=== PATIENT | male | born 1940 | race Caucasian/White ===

== ENCOUNTER 2023-05-29 10:13 | Emergency (ER) | payer MEDICARE, BC, SELFPAY ==
[2023-05-29 10:15] VITALS: BP 181/80
--- NOTE | 2023-05-29 10:38 | ED.GENMED ---
History of Present Illness
<JASON Larson - Last Filed: 05/29/23 13:25>
General
Chief Complaint: Cardiac Symptoms
Source: patient
Exam Limitations: none
Time Seen by Provider: 05/29/23 10:29
Nursing documentation reviewed up to this point in time: agreed with
Travel History
Have you had any contact with someone who has COVID-19?: No
Do you have any symptoms of coronavirus? Fever > 100 degrees, chills, cough, shortness of breath, sore throat, loss of taste or smell, muscle aches, or headache?: No
History of Present Illness
History of Present Illness:
82 yr old male past medical history of [place] former smoker hypertension hyperlipidemia reflux presents to the ER for evaluation. Patient reports normal the night around 4:15 am he had comfort to his chest and had very mild discomfort in his shoulder
blades. He is unsure exactly how long each episode lasted approx 'maybe 15 min.' He had no associated shortness of breath with it. No nausea vomiting. He does report he had a dinner republican at his house last night and probably ate and drank a
little too much alcohol. He does have a history however of TX with cardiac stent 14 years ago. He is followed by Dr. Phipps. He did notify the office and they recommended he come to the ER.
With his prior TX his symptoms leading up to his stent were shoulder blade pain with exertion. He does however report that he is very active and plays tennis several times a week and does not get any symptoms of chest pain or shoulder blade pain
with activity. Since having his TX he has had intermittent chronic pain in the scapula. He does report Dr. Phipps is aware of this
He is on aspirin no other blood thinners.
He is currently symptomatic
Past History
<JASON Larson - Last Filed: 05/29/23 13:25>
Past History
ED Past Medical History: CAD, HTN, Hypercholesterolemia, [place] and Other (Lumbar stenosis)
ED Past Surgical History: Cardiac, Orthopedic and Other
Social History
Tobacco: Non-smoker
Alcohol: Daily
Drug: None
Personal:
Living: with family
Employment: Employed
Family History
Family History: Hypertension and CAD
Review of Systems
<JASON Larson - Last Filed: 05/29/23 13:25>
Review of Systems
Allergies reviewed?: Yes
All Other Systems: ROS reviewed and negative except as documented in HPI and ROS
Constitutional: Reports no symptoms; Denies fever
Respiratory: Denies trouble breathing
Cardiac: Reports chest pain and other (resolved now ); Denies diaphoresis, palpitations or syncope
ABD/GI: Reports no symptoms; Denies abdominal pain, nausea or vomiting
Musculoskeletal: Reports no symptoms
Skin: Reports no symptoms
Psychiatric: Reports no symptoms
Phy Exam
<JASON Larson - Last Filed: 05/29/23 13:25>
General Physical Exam
General Presentation: no apparent distress
General age: appears stated age
General Skin: warm and dry
General Habitus: normal
General Mental: alert
General Hydration: appears well hydrated
Cardiovascular Exam
Cardiovascular Exam: regular rate/rhythm, no murmur and normal peripheral pulses
Pulmonary Exam
Pulmonary Exam: lungs clear and no respiratory distress
Neurological Exam
Neurological Exam: alert and oriented x3
Musculoskeletal Exam
Musculoskeletal Exam: full ROM
Skin Exam
Skin Exam: normal color and warm/dry
Psychiatric Exam
Psychiatric Exam: normal mood/affect
Course
<JASON Larson - Last Filed: 05/29/23 13:25>
Orders/Labs/Results
Orders:
Orders
05/29/23 10:17
EKG [Electrocardiogram (*1)] Urgent
Reason for Study: Chest Pain
EKG- Treatment ONCE
05/29/23 10:37
IV Insert/Care/Rem.- Treatment PRN
05/29/23 10:38
Cardiac Monitoring- Treatment ONCE
05/29/23 11:09
Complete Blood Count/With Diff Urgent
Comprehensive Metabolic Panel Urgent
Troponin I Urgent
Abnormal Lab Results
05/29/23
11:09
MCH 31.6 H pg
(27.0-31.0)
MPV 11.0 H fL
(7.4-10.4)
Absolute Monos (auto) 0.7 H 10^3/uL
(0.1-0.6)
Monocytes % 11.2 H %
(1.7-9.3)
BUN 21 H mg/dl
(9-20)
05/29/23 11:09
05/29/23 11:09
Vital Signs
Initial and Last Documented VS:
Initial Vital Signs
Temp Pulse Resp BP Pulse Ox
98.4 F 55 16 181/80 99
05/29/23 10:15 05/29/23 10:15 05/29/23 10:15 05/29/23 10:15 05/29/23 10:15
Last Documented Vital Signs
Temp Pulse Resp BP Pulse Ox
98.4 F 51 18 153/75 96
05/29/23 10:15 05/29/23 12:15 05/29/23 12:15 05/29/23 12:00 05/29/23 12:15
Corporate Safety Manager consulted with Physician
Corporate Safety Manager consulted with physician?: Yes
Name of Physician Consulted: Estee
<Srikanth Fontanez, DO - Last Filed: 05/29/23 13:18>
Orders/Labs/Results
Orders:
Orders
05/29/23 10:17
EKG [Electrocardiogram (*1)] Urgent
Reason for Study: Chest Pain
EKG- Treatment ONCE
05/29/23 10:37
IV Insert/Care/Rem.- Treatment PRN
05/29/23 10:38
Cardiac Monitoring- Treatment ONCE
05/29/23 11:09
Complete Blood Count/With Diff Urgent
Comprehensive Metabolic Panel Urgent
Troponin I Urgent
Abnormal Lab Results
05/29/23
11:09
MCH 31.6 H pg
(27.0-31.0)
MPV 11.0 H fL
(7.4-10.4)
Absolute Monos (auto) 0.7 H 10^3/uL
(0.1-0.6)
Monocytes % 11.2 H %
(1.7-9.3)
BUN 21 H mg/dl
(9-20)
05/29/23 11:09
05/29/23 11:09
Vital Signs
Initial and Last Documented VS:
Initial Vital Signs
Temp Pulse Resp BP Pulse Ox
98.4 F 55 16 181/80 99
05/29/23 10:15 05/29/23 10:15 05/29/23 10:15 05/29/23 10:15 05/29/23 10:15
Last Documented Vital Signs
Temp Pulse Resp BP Pulse Ox
98.4 F 51 18 153/75 96
05/29/23 10:15 05/29/23 12:15 05/29/23 12:15 05/29/23 12:00 05/29/23 12:15
<JASON Larson - Last Filed: 05/29/23 13:25>
MDM/Problems Addressed
Differential Diagnosis Includes:
Not limited to: unstable angina , ACS, CAD, reflux
MDM/Problems Addressed:
Patient has been chest pain-free since 4:15 AM. He presents awake alert no acute distress. He has no complaints now. He describes having intermittent issues with pain in his shoulder blade since having his TX years ago and cardiology is aware of
this. He did have a dinner republican last night and ate and drank alcohol and had pain was chest and upper for 15 this morning that lasted for approximate 15 minutes. He has been asymptomatic since and no acute distress. He is very active and plays
tennis several times a week without symptoms. Patient no acute findings on EKG. Patient had normal cardiac troponin. Patient is seeing Dr. Phipps in 2 weeks. Patient is well-appearing nontoxic. Case reviewed with ED physician evaluated patient
stable for discharge home with outpatient cardiology follow-up placed on chest pain
<JASON Larson - Last Filed: 05/29/23 13:25>
*Pulse Oximetry
Patient hypoxic: no
*EKG
Heart Rate: 57
Rate: bradycardiac
Rhythm: sinus
Ischemia: no ischemia
*Critical Care Note
Total Time (30-74mins, 75-104mins- exclusive of procedures): Not Applicable
Data Reviewed
Review of Other/Old Records Reveals: Other (Echo from September 2019 shows LV fraction of 60-65% no regional wall abnormalities normal diastolic function normal RV size and function)
ED Attending Note
<JASON Larson - Last Filed: 05/29/23 13:25>
-
Portions of this chart may have been created with voice recognition software.� Occasional wrong word or��sound alike� substitutions may have occurred due to the inherent limitations of voice recognition software.
<Srikanth Fontanez DO - Last Filed: 05/29/23 13:18>
ED Attending Note
Patient seen and examined by attending physician: Yes
I performed the substantive portion of visit, reviewed & personally made and approve the management plan that is documented in note by myself or MARCELLA.: Yes
I performed a history and physical exam of patient and discussed management with resident, I reviewed resident's note and agree with documented findings and plan of care.: Yes
ED Attending Note:
I evaluated patient at bedside. The patient has chronic interscapular pain for about 14 years since his TX which was stented. Today at 4 AM he had low-level chest heaviness that lasted for about 15 minutes intermittently. He has not had any
symptoms since 4:15 AM. He drinks alcohol on a daily basis. He had a heavy meal last night. EKG and troponin are unremarkable. Troponin was drawn well after onset of symptoms. He has had no further symptoms. The patient strong prefers
outpatient management.
Discharge Plan
Departure
Patient Disposition: Home (Routine Discharge)
Date of Disposition: 05/29/23
Time of Disposition: 13:23
Patient with high blood pressure during this ER visit?: Yes
Covid-19: Not Applicable
Discharge Problem:
Chest pain
Instructions: Chest Pain (DC), Chest Pain CBC Follow Up, BLOOD PRESSURE
Prescriptions:
No Action
aspirin [Ecotrin Low Strength] 81 MG tablet,delayed release (DR/EC)
81 mg PO DAILY
simvastatin 40 MG tablet
20 mg PO QPM
metoprolol succinate 25 MG tablet extended release 24 hr
12.5 mg PO DAILY
cholecalciferol (vitamin D3) [Vitamin D3] 2,000 UNIT capsule
2,000 unit PO DAILY
Patient Comments:
in winter months only
ticagrelor [Brilinta] 90 MG tablet
2 tab PO BID
Patient Comments:
Pegasis Study (Ticagrelor vs. Placebo)
esomeprazole magnesium [Nexium] 20 MG capsule,delayed release(DR/EC)
20 mg PO DAILY
nitroglycerin 0.4 MG tablet, sublingual
0.4 mg sublingual [id number] PRN (Reason: chest or back pain) Qty: 25 0RF
polyethylene glycol 3350 17 GRAMS powder in packet
17 grams PO DAILY 5 Days 0RF
amoxicillin-pot clavulanate 1 TABLET tablet
1 tab PO Q12 Qty: 20 0RF
prednisone 10 MG tablets,dose pack
10 mg PO Daily Qty: 1 0RF
Rx Instructions:
50mg x 2 days, 40mg x 2 days, 30mg x 2 days, 20mg x 2 days, 10mg x 2 days
lidocaine 1 PATCH adhesive patch,medicated
1 patch topical DAILY Qty: 10 0RF
Rx Instructions:
ON FOR 12 HOURS, OFF FOR 12 HOURS
diazepam 5 MG tablet
5 mg PO TIDPRN PRN (Reason: Pain, spasm) Qty: 10 0RF
Referrals:
Wilman Phipps MD [Active] -
Tyler Chapa MD [Family Provider] -
Activity Restrictions/Additional Instructions:
Follow-up with Dr. Phipps, cardiology. You were placed on the chest pain hotline to get see cardiology sooner. If you do not hear from the office in the next day or 2 please give them a call to schedule an appointment. Return if any worsening of
symptoms.
Interventions
Interventions:
*Risk Screen - Suicide Last Done: 05/29/23 10:15
*General Assessment Last Done: 05/29/23 10:15
*Neglect/Abuse Screening Last Done: 05/29/23 10:15
*ED COVID-19 Vaccine History Last Done: 05/29/23 10:15
ED- Pulmonary Assessment Last Done: 05/29/23 11:23
ED- Cardiac Assessment Last Done: 05/29/23 11:23
[2023-05-29 10:53] VITALS: BMI 25.1
[2023-05-29 11:03] VITALS: BP 174/83
[2023-05-29 11:27] LABS: % Basophils 0.6 % (0-2); % Eosinophils 5.8 % (0-6); % Immature Granulocytes 0.3 % (0-0.5); % Lymphocytes 37.5 % (20.5-51.1); % Monocytes 11.2 % (1.7-9.3); % Neutrophils 44.6 % (42.2-75.2); Absolute Eosinophils 0.4 10^3/uL (0-0.7); Absolute Lymphocytes 2.3 10^3/uL (1.2-3.4); Absolute Monocytes 0.7 10^3/uL (0.1-0.6); Absolute Neutrophils 2.8 10^3/uL (1.4-6.5); Mean Corp Hgb Conc. 35.6 g/dL (33.0-37.0); Mean Corpuscular Hgb 31.6 pg (27.0-31.0); Mean Corpuscular Volume 88.9 fL (80.0-94.0); Nucleated Red Blood Cells % 0 % (-); Platelet Count 167 10^3/uL (130-400); Red Blood Cell Count 5.06 10^6/uL (4.70-6.10); Red Cell Dist. Width 12.8 % (11.5-14.5); White Blood Cell Count 6.2 10^3/uL (4.8-10.8)
[2023-05-29 11:37] LABS: ALT (SGPT) 34 U/L (0-50); AST (SGOT) 32 U/L (17-59); Albumin 4.2 g/dl (3.5-5.0); Alkaline Phosphatase 110 U/L (38-126); Blood Urea Nitrogen 21 mg/dl (9-20); Calcium 9.5 mg/dl (8.4-10.2); Carbon Dioxide 27 mmol/L (22-30); Chloride 105 mmol/L (98-107); Estimated Creatinine Clearance 51 ml/min; Glucose 95 mg/dl (70-99); Potassium 4.8 mmol/L (3.5-5.1); Sodium 137 mmol/L (135-145); Total Bilirubin 0.6 mg/dl (0.2-1.3); Total Protein 6.7 g/dl (6.3-8.2); eGFR > 60.00
[2023-05-29 11:49] LABS: Troponin I < 0.012 ng/ml
[2023-05-29 12:00] VITALS: BP 153/75
== END 2023-05-29 13:25 | disposition home or self-care (01) ==
LOC: EMR 10:13
PROVIDERS: Nurse Practitioner; EMERGENCY PHYSICIAN Emergency Medicine; FAMILY PHYSICIAN Family Medicine; REFERRING PHYSICIAN Internal Medicine
DX: R07.89 Other chest pain (principal); I10 Essential (primary) hypertension
CPT/HCPCS: 99284; 80053; 84484; 85025; 93005

== ENCOUNTER → 2023-06-06 11:24 | Outpatient (REF) | payer MEDICARE, BC, SELFPAY | LOC: DHCBC/DCA 11:24 | PROVIDERS: ATTENDING PHYSICIAN Nurse Practitioner; FAMILY PHYSICIAN Family Medicine | DX: R07.89 Other chest pain (principal) | CPT/HCPCS: 78452; 93017; A9500 ==

== ENCOUNTER → 2023-06-26 08:11 | Outpatient (REF) | payer MEDICARE, BC, SELFPAY ==
[2023-06-26 08:43] LABS: % Basophils 0.6 % (0-2); % Eosinophils 3.9 % (0-6); % Immature Granulocytes 0.2 % (0-0.5); % Lymphocytes 36.1 % (20.5-51.1); % Monocytes 9.7 % (1.7-9.3); % Neutrophils 49.5 % (42.2-75.2); Absolute Eosinophils 0.2 10^3/uL (0-0.7); Absolute Lymphocytes 2.2 10^3/uL (1.2-3.4); Absolute Monocytes 0.6 10^3/uL (0.1-0.6); Absolute Neutrophils 3.1 10^3/uL (1.4-6.5); Hematocrit 46.2 % (39.0-52.0); Hemoglobin 16.1 g/dL (13.0-18.0); Mean Corp Hgb Conc. 34.8 g/dL (33.0-37.0); Mean Corpuscular Hgb 31.3 pg (27.0-31.0); Mean Corpuscular Volume 89.7 fL (80.0-94.0); Mean Platelet Volume 10.6 fL (7.4-10.4); Nucleated Red Blood Cells % 0 % (-); Platelet Count 207 10^3/uL (130-400); Red Blood Cell Count 5.15 10^6/uL (4.70-6.10); White Blood Cell Count 6.2 10^3/uL (4.8-10.8)
[2023-06-26 09:07] LABS: ALT (SGPT) 35 U/L (0-50); AST (SGOT) 37 U/L (17-59); Albumin 4.3 g/dl (3.5-5.0); Alkaline Phosphatase 86 U/L (38-126); Blood Urea Nitrogen 22 mg/dl (9-20); Calcium 9.9 mg/dl (8.4-10.2); Carbon Dioxide 28 mmol/L (22-30); Chloride 103 mmol/L (98-107); Glucose 110 mg/dl (70-99); HDL Cholesterol 55 mg/dl; LDL Cholesterol, Calculated 57 mg/dl; Potassium 4.7 mmol/L (3.5-5.1); Sodium 139 mmol/L (135-145); Total Bilirubin 0.7 mg/dl (0.2-1.3); Total Cholesterol 128 mg/dl (50-199); Triglyceride 81 mg/dl (10-149); Very Low Density Lipoprotein 16 mg/dl (0-30); eGFR > 60.00
== END ==
LOC: REG 08:11
PROVIDERS: ATTENDING PHYSICIAN Family Medicine
DX: Z95.5 Presence of coronary angioplasty implant and graft (principal); I10 Essential (primary) hypertension; I25.10 Atherosclerotic heart disease of native coronary artery without angina pectoris; I21.4 Non-ST elevation (NSTEMI) myocardial infarction; E78.5 Hyperlipidemia, unspecified; I95.1 Orthostatic hypotension; N18.31 Chronic kidney disease, stage 3a
CPT/HCPCS: 36415; 80053; 80061; 85025

== ENCOUNTER 2023-09-22 20:41 | Emergency (ER) | payer MEDICARE, BC, SELFPAY ==
[2023-09-22 20:41] VITALS: BMI 26.2
[2023-09-22 20:43] VITALS: BP 170/70
--- NOTE | 2023-09-22 21:03 | ED.GENMED ---
History of Present Illness
General
Chief Complaint: Eye Problems
Time Seen by Provider: 09/22/23 21:02
Travel History
Have you had any contact with someone who has COVID-19?: No
Do you have any symptoms of coronavirus? Fever > 100 degrees, chills, cough, shortness of breath, sore throat, loss of taste or smell, muscle aches, or headache?: No
History of Present Illness
History of Present Illness:
HPI: Patient has sensation that got into his eye when he was mowing his grass earlier today. His thought maybe there was a blister. He did irrigate the eye and there has been some improvement. He denies any other symptoms or concerns. There
is no change with his vision.
EXAM:
EXAM:
GENERAL: Well appearing in no distress
EYES: Conjunctival injection noted of the right eye, there is some degree of episcleritis to the 9 o'clock position of the right eye, there is no fluorescein uptake to the cornea
HEENT: Moist oral mucosa
NEUROLOGIC: Excellent strength all extremities, no obvious coordination deficits
PSYCHIATRIC: Appropriate mental status, normal insight and judgement
EXTREMITIES: Nontender, no edema, moves all extremities equally
SKIN: No rash, no lesions
TIME OF INITIAL ENCOUNTER: 9:05 PM
NUMBER AND COMPLEXITY OF PROBLEMS ADDRESSED AT THE ENCOUNTER
� Chronic conditions affecting care: Spinal stenosis, former smoker, high blood pressure, hyperlipidemia
� Acute Exacerbation and/or Progression of Chronic Illness: This is an acute problem
� Differential Diagnosis includes: Corneal foreign body, conjunctival foreign body, conjunctivitis, corneal abrasion
AMOUNT AND/OR COMPLEXITY OF DATA TO BE REVIEWED AND ANALYZED
� I performed an independent evaluation of and my interpretation is:
EKG:
CT:
X-rays:
Laboratory Studies:
Other:
� Review of other/old records: I reviewed records, the patient was seen with chest pain 2023
� Clinical information was obtained by an independent historian: I spoke to at bedside
� Prescriptions/Medications Considered but not given:
� Further testing considered but not performed:
RISK OF COMPLICATIONS AND/OR MORBIDITY OR MORTALITY OF PATIENT MANAGEMENT
� Social determinants of health affecting care:
� Discussion with other providers:
� Escalation of care including admission/observation vs risk of discharge considered: I performed a detailed eye examination including assessment for foreign body and any fluorescein uptake�both of these were negative. We used
tetracaine and I did copiously irrigate the eye including looking underneath and irrigating the inside of the lids. 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
Past History
Past History
ED Past Medical History: CAD, HTN, Hypercholesterolemia, [place] and Other (Lumbar stenosis)
ED Past Surgical History: Cardiac, Orthopedic and Other
Social History
Tobacco: Non-smoker
Alcohol: Daily
Drug: None
Personal:
Living: with family
Employment: Employed
Family History
Family History: Hypertension and CAD
Phy Exam
Physical Exam
Physical Exam:
See HPI
Course
Vital Signs
Initial and Last Documented VS:
Initial Vital Signs
Temp Pulse Resp BP Pulse Ox
98.1 F 64 18 170/70 97
09/22/23 20:43 09/22/23 20:43 09/22/23 20:43 09/22/23 20:43 09/22/23 20:43
Last Documented Vital Signs
Temp Pulse Resp BP Pulse Ox
98.1 F 64 18 170/70 97
09/22/23 20:43 09/22/23 20:43 09/22/23 20:43 09/22/23 20:43 09/22/23 20:43
*Critical Care Note
Total Time (30-74mins, 75-104mins- exclusive of procedures): Not Applicable
ED Attending Note
-
Portions of this chart may have been created with voice recognition software.� Occasional wrong word or��sound alike� substitutions may have occurred due to the inherent limitations of voice recognition software.
Discharge Plan
Departure
Prescriptions:
No Action
aspirin [Ecotrin Low Strength] 81 MG tablet,delayed release (DR/EC)
81 mg PO DAILY
simvastatin 40 MG tablet
20 mg PO QPM
metoprolol succinate 25 MG tablet extended release 24 hr
12.5 mg PO DAILY
cholecalciferol (vitamin D3) [Vitamin D3] 2,000 UNIT capsule
2,000 unit PO DAILY
Patient Comments:
in winter months only
ticagrelor [Brilinta] 90 MG tablet
2 tab PO BID
Patient Comments:
Pegasis Study (Ticagrelor vs. Placebo)
esomeprazole magnesium [Nexium] 20 MG capsule,delayed release(DR/EC)
20 mg PO DAILY
nitroglycerin 0.4 MG tablet, sublingual
0.4 mg sublingual [id number] PRN (Reason: chest or back pain) Qty: 25 0RF
polyethylene glycol 3350 17 GRAMS powder in packet
17 grams PO DAILY 5 Days 0RF
amoxicillin-pot clavulanate 1 TABLET tablet
1 tab PO Q12 Qty: 20 0RF
prednisone 10 MG tablets,dose pack
10 mg PO Daily Qty: 1 0RF
Rx Instructions:
50mg x 2 days, 40mg x 2 days, 30mg x 2 days, 20mg x 2 days, 10mg x 2 days
lidocaine 1 PATCH adhesive patch,medicated
1 patch topical DAILY Qty: 10 0RF
Rx Instructions:
ON FOR 12 HOURS, OFF FOR 12 HOURS
diazepam 5 MG tablet
5 mg PO TIDPRN PRN (Reason: Pain, spasm) Qty: 10 0RF
Interventions
Interventions:
*Risk Screen - Suicide Last Done: 09/22/23 20:43
*General Assessment Last Done: 09/22/23 20:57
*Neglect/Abuse Screening Last Done: 09/22/23 20:43
*ED COVID-19 Vaccine History Last Done: 09/22/23 20:57
Discharge Date and Time
Print Language: LUX[place]
== END 2023-09-22 21:46 | disposition home or self-care (01) ==
LOC: EMR 20:41
PROVIDERS: EMERGENCY PHYSICIAN Emergency Medicine; FAMILY PHYSICIAN Family Medicine
DX: H15.101 Unspecified episcleritis, right eye (principal)
CPT/HCPCS: 99283

== ENCOUNTER 2023-09-22 22:55 | Emergency (ER) | payer MEDICARE, BC, SELFPAY ==
[2023-09-22 23:04] VITALS: BP 190/78
--- NOTE | 2023-09-22 23:31 | ED.GENMED ---
History of Present Illness
General
Chief Complaint: Eye Problems
Time Seen by Provider: 09/22/23 23:08
Travel History
Have you had any contact with someone who has COVID-19?: No
Do you have any symptoms of coronavirus? Fever > 100 degrees, chills, cough, shortness of breath, sore throat, loss of taste or smell, muscle aches, or headache?: No
History of Present Illness
History of Present Illness:
HPI: The patient was just seen here by me after foreign body sensation after he was mowing the lawn. On prior evaluation, I used tetracaine, there was no fluorescein uptake, and we irrigated the eye and everted the lid and saw no foreign body.
When the tetracaine wore off, he felt worse and came in here for reevaluation.
EXAM:
GENERAL: Well appearing in no distress
HEENT: Moist oral mucosa, conjunctival injection, no foreign body noted, the lid was everted again with no foreign body, there is suggestion of pterygium and episcleritis to the 9 o'clock position of the next to the cornea but the sensation is in
the lateral aspect of the upper lip
NEUROLOGIC: Excellent strength all extremities, no obvious coordination deficits
PSYCHIATRIC: Appropriate mental status, normal insight and judgement
EXTREMITIES: Nontender, no edema, moves all extremities equally
SKIN: No rash, no lesions
TIME OF INITIAL ENCOUNTER: 11:20 PM
NUMBER AND COMPLEXITY OF PROBLEMS ADDRESSED AT THE ENCOUNTER
� Chronic conditions affecting care: Spinal stenosis, high blood pressure, hyperlipidemia, GERD, CAD
� Acute Exacerbation and/or Progression of Chronic Illness: This is an acute
� Differential Diagnosis includes: Retained foreign body, allergic reaction, episcleritis, to region
AMOUNT AND/OR COMPLEXITY OF DATA TO BE REVIEWED AND ANALYZED
� I performed an independent evaluation of and my interpretation is:
EKG:
CT:
X-rays:
Laboratory Studies:
Other:
� Review of other/old records:
� Clinical information was obtained by an independent historian: Spoke to the at bedside
� Prescriptions/Medications Considered but not given:
� Further testing considered but not performed:
RISK OF COMPLICATIONS AND/OR MORBIDITY OR MORTALITY OF PATIENT MANAGEMENT
� Social determinants of health affecting care: Lives at home
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
� Escalation of care including admission/observation vs risk of discharge considered: I again irrigated the eye several times with saline. The lid was everted and I again see no foreign body. I also used a Q-tip inside the
upper lid and there is no foreign body noted. Gave a dose of Percocet and also irrigated further with Carlos lens.
Past History
Past History
ED Past Medical History: CAD, HTN, Hypercholesterolemia, [place] and Other (Lumbar stenosis)
ED Past Surgical History: Cardiac, Orthopedic and Other
Social History
Tobacco: Non-smoker
Alcohol: Daily
Drug: None
Personal:
Living: with family
Employment: Employed
Family History
Family History: Hypertension and CAD
Phy Exam
Physical Exam
Physical Exam:
See HPI
Course
Orders/Labs/Results
Orders:
Orders
09/22/23 23:33
Oxycodone/Acetaminophen [Percocet 5/325] 1 tablet PO NOW STA
Vital Signs
Initial and Last Documented VS:
Initial Vital Signs
Temp Pulse Resp BP Pulse Ox
98.6 F 60 24 190/78 98
09/22/23 23:04 09/22/23 23:04 09/22/23 23:04 09/22/23 23:04 09/22/23 23:04
Last Documented Vital Signs
Temp Pulse Resp BP Pulse Ox
98.6 F 58 14 178/75 95
09/22/23 23:04 09/23/23 00:10 09/23/23 00:10 09/23/23 00:10 09/23/23 00:10
*Critical Care Note
Total Time (30-74mins, 75-104mins- exclusive of procedures): Not Applicable
ED Attending Note
-
Portions of this chart may have been created with voice recognition software.� Occasional wrong word or��sound alike� substitutions may have occurred due to the inherent limitations of voice recognition software.
Discharge Plan
Departure
Patient Disposition: Home (Routine Discharge)
Date of Disposition: 09/23/23
Time of Disposition: 00:01
Patient with high blood pressure during this ER visit?: Yes
Discharge Problem:
Conjunctivitis
Prescriptions:
No Action
aspirin [Ecotrin Low Strength] 81 MG tablet,delayed release (DR/EC)
81 mg PO DAILY
simvastatin 40 MG tablet
20 mg PO QPM
metoprolol succinate 25 MG tablet extended release 24 hr
12.5 mg PO DAILY
cholecalciferol (vitamin D3) [Vitamin D3] 2,000 UNIT capsule
2,000 unit PO DAILY
Patient Comments:
in winter months only
ticagrelor [Brilinta] 90 MG tablet
2 tab PO BID
Patient Comments:
Pegasis Study (Ticagrelor vs. Placebo)
esomeprazole magnesium [Nexium] 20 MG capsule,delayed release(DR/EC)
20 mg PO DAILY
nitroglycerin 0.4 MG tablet, sublingual
0.4 mg sublingual [id number] PRN (Reason: chest or back pain) Qty: 25 0RF
polyethylene glycol 3350 17 GRAMS powder in packet
17 grams PO DAILY 5 Days 0RF
amoxicillin-pot clavulanate 1 TABLET tablet
1 tab PO Q12 Qty: 20 0RF
prednisone 10 MG tablets,dose pack
10 mg PO Daily Qty: 1 0RF
Rx Instructions:
50mg x 2 days, 40mg x 2 days, 30mg x 2 days, 20mg x 2 days, 10mg x 2 days
lidocaine 1 PATCH adhesive patch,medicated
1 patch topical DAILY Qty: 10 0RF
Rx Instructions:
ON FOR 12 HOURS, OFF FOR 12 HOURS
diazepam 5 MG tablet
5 mg PO TIDPRN PRN (Reason: Pain, spasm) Qty: 10 0RF
Referrals:
Tyler Chapa MD [Family Provider] -
Activity Restrictions/Additional Instructions:
Follow-up with your drama director. If symptoms worsen consider going to [facility].
Interventions
Interventions:
*Risk Screen - Suicide Last Done: 09/22/23 23:04
*General Assessment Last Done: 09/22/23 23:20
*Neglect/Abuse Screening Last Done: 09/22/23 23:04
ED- Fall Risk Assessment Last Done: 09/22/23 23:20
*ED COVID-19 Vaccine History Last Done: 09/22/23 23:20
*Nursing Disposition Last Done: 09/23/23 00:10
Discharge Date and Time
Discharge Date/Time: 09/23/23 00:10
Print Language: SLOV[place]
[2023-09-22] MEDS: PERCOCET 5/325 1 TABLET PO (23:38)
[2023-09-23 00:10] VITALS: BP 178/75
== END 2023-09-23 00:10 | disposition home or self-care (01) ==
LOC: EMR 22:55
PROVIDERS: EMERGENCY PHYSICIAN Emergency Medicine; FAMILY PHYSICIAN Family Medicine
DX: H10.9 Unspecified conjunctivitis (principal); I10 Essential (primary) hypertension
CPT/HCPCS: 99283

== ENCOUNTER → 2024-06-23 10:05 | Outpatient (REF) | payer MEDICARE, BC, SELFPAY ==
[2024-06-23 11:13] LABS: % Basophils 0.6 % (0-2); % Eosinophils 4.1 % (0-6); % Immature Granulocytes 0.2 % (0-0.5); % Lymphocytes 36.2 % (20.5-51.1); % Monocytes 10.4 % (1.7-9.3); % Neutrophils 48.5 % (42.2-75.2); Absolute Eosinophils 0.3 10^3/uL (0-0.7); Absolute Lymphocytes 2.2 10^3/uL (1.2-3.4); Absolute Monocytes 0.6 10^3/uL (0.1-0.6); Hematocrit 47.1 % (39.0-52.0); Hemoglobin 16.1 g/dL (13.0-18.0); Mean Corp Hgb Conc. 34.2 g/dL (33.0-37.0); Mean Corpuscular Hgb 31.2 pg (27.0-31.0); Mean Corpuscular Volume 91.3 fL (80.0-94.0); Mean Platelet Volume 10.9 fL (7.4-10.4); Nucleated Red Blood Cells % 0 % (-); Platelet Count 204 10^3/uL (130-400); Red Blood Cell Count 5.16 10^6/uL (4.70-6.10); Red Cell Dist. Width 13.4 % (11.5-14.5); White Blood Cell Count 6.2 10^3/uL (4.8-10.8)
[2024-06-23 12:06] LABS: ALT (SGPT) 95 U/L (0-50); AST (SGOT) 46 U/L (17-59); Albumin 4.6 g/dl (3.5-5.0); Alkaline Phosphatase 105 U/L (38-126); Blood Urea Nitrogen 23 mg/dl (9-20); Calcium 9.7 mg/dl (8.4-10.2); Carbon Dioxide 27 mmol/L (22-30); Chloride 101 mmol/L (98-107); Glucose 96 mg/dl (70-99); HDL Cholesterol 50 mg/dl; LDL Cholesterol, Calculated 59 mg/dl; Potassium 4.7 mmol/L (3.5-5.1); Sodium 137 mmol/L (135-145); Total Bilirubin 1.2 mg/dl (0.2-1.3); Total Cholesterol 124 mg/dl (50-199); Total Protein 7.2 g/dl (6.3-8.2); Triglyceride 77 mg/dl (10-149); Very Low Density Lipoprotein 15 mg/dl (0-30); eGFR > 60.00
== END ==
LOC: REG 10:05
PROVIDERS: ATTENDING PHYSICIAN Family Medicine; REFERRING PHYSICIAN Internal Medicine
DX: I10 Essential (primary) hypertension (principal); I25.10 Atherosclerotic heart disease of native coronary artery without angina pectoris; E78.5 Hyperlipidemia, unspecified; I21.4 Non-ST elevation (NSTEMI) myocardial infarction; N18.31 Chronic kidney disease, stage 3a
CPT/HCPCS: 36415; 80053; 80061; 85025